=== PATIENT | female | born 1970 | race African-American/Black ===

== ENCOUNTER 2021-10-31 02:00 | Emergency (ER) | payer OTHER ==
[2021-10-31] MEDS ORDERED: Ondansetron PF 4 MG/2 ML Vial ONE (02:42)
[2021-10-31] MEDS ORDERED: Morphine 4 MG/ML VIAL ONE ×3 (02:42→08:04)
[2021-10-31 02:44] LABS: #Eosinphils 0.1 10x3/uL (0.0-0.5); #Monocytes 0.2 10x3/uL (0.0-1.1); #Neutrophils 4.4 10x3/uL (1.5-8.4); %Basophils 0.6 % (0.0-2.0); %Eosinophils 1.2 % (0.0-6.0); %Lymphocytes 8.6 % (18.0-47.0); %Neutrophils 84.8 % (40.0-75.0); Mean Corpuscular Hemoglobin 27.3 pg (27.0-33.0); Mean Corpuscular Volume 82.7 fl (81.6-98.3); Mean Platelet Volume 9.7 fl (7.4-10.4); Platelet Count 289 10x3/uL (150-450); RBC Distribution Width 16.2 % (11.5-14.5); White Blood Cell (WBC) Count 5.2 10x3/uL (3.5-10.5)
[2021-10-31 03:03] LABS: ALT (SGPT) 12 U/L (8-55); AST (SGOT) 16 U/L (5-34); Alkaline Phosphatase 71 U/L (40-110); Anion Gap 16 mmol/L (10-20); BUN (Urea Nitrogen) 16 mg/dL (9.8-20.1); Bilirubin, Total 0.3 mg/dL (0.2-1.2); Calc. Creatinine Clearance 0 mL/min (70-130); Calcium 9.4 mg/dL (7.8-10.44); Carbon Dioxide 25 mmol/L (22-29); Chloride 100 mmol/L (98-107); Estimated GFR 56; Globulin 3.7 g/dL (2.4-3.5); Glucose 211 mg/dL (70-105); Protein, Total 7.7 g/dL (6.0-8.3); Sodium 137 mmol/L (136-145)
[2021-10-31] MEDS ORDERED: Fentanyl 100 MCG/2 ML VIAL ONE (06:06)
[2021-10-31 07:56] LABS: SARS-CoV-2 NAA Rapid Test Not Detected (NotDetected)
[2021-10-31 09:28] LABS: Hemoglobin 8.1 g/dL (12.0-15.5)
[2021-10-31] MEDS ORDERED: Iopamidol 370 76% 100 ML VIAL ONE (12:10)
== END 2021-10-31 14:25 | disposition home or self-care (01) ==
LOC: CSHERS 02:00
DX: C51.9 Malignant neoplasm of vulva, unspecified (principal); K64.4 Residual hemorrhoidal skin tags; N82.3 Fistula of vagina to large intestine; R06.00 Dyspnea, unspecified; E11.9 Type 2 diabetes mellitus without complications; I10 Essential (primary) hypertension; Z20.822 Contact with and (suspected) exposure to COVID-19; Z79.4 Long term (current) use of insulin; Z79.899 Other long term (current) drug therapy
CPT/HCPCS: 36415; 71045; 71275; 80053; 82274; 83630; 83880; 84484; 85025; 85379; 87324; 87449; 93005; 96374; 96375; 96376; J2270; J2405; J3010; Q9967; U0002